=== PATIENT | female | born 1990 | race Caucasian/White ===

== ENCOUNTER 2016-09-06 20:20 | Emergency (ER) | payer OTHER ==
[~2016-09-06] VITALS: Ht 162.6 cm; Wt 68.0 kg
--- NOTE | 2016-09-06 20:58 | ED GI/GU/ABDOMINAL COMPLAINT ---
History of Present Illness General Chief Complaint: Female Urogenital Problems Stated Complaint: "I THINK IM HAVING A MISCARRIAGE" 7 1/2 WKS Source: patient, old records Exam Limitations: no limitations Vital Signs & Intake/Output Vital Signs & Intake/Output Vital Signs Date Time Temp Pulse Resp B/P Pulse O2 O2 Flow FiO2 Ox Delivery Rate 09/06 2320 99.0 83 16 97/57 99 Room Air 09/06 2300 98.8 80 16 110/57 99 Room Air 09/06 2036 97.8 97 16 129/84 96 Room Air Allergies Coded Allergies: No Known Allergies (09/06/16) Reconcile Medications Levothyroxine Sodium 88 MCG TABLET 1 TAB PO DAILY THYROID (Reported) Pnv95/Ferrous Fumarate/FA ( [place]) 28 MG IRON-800 MCG TABLET 1 TAB PO DAILY (Reported) Triage Note: PT 7.5 WEEKS TO TRIAGE WITH C/O LOWER ABD PAIN 6/10 x2HR AND LIGHT PINK SPOTTING x2OMIN. , 1 MISCARRIAGE. PER PTS LAUREN BAILEY PT NEEDS RHOGAM INJECTION. URINE SAMPLE SENT TO LAB. Triage Nurses Notes Reviewed? yes LMP (ages 10-50): 07/08 ? Y Is pt currently ? No Onset: Abrupt Duration: hour(s): (2), constant Timing: recent history Quality/Severity: aching, cramping Severity Numbers: 4 Location: vaginal Radiation: no radiation Activities at Onset: none Prior Abdominal Problems: none No Modifying Factors: none Associated Symptoms: DENIES HPI: This is a 26-year-old female with history of miscarriage presents 7-1/2 weeks with light pink spotting for the past 20 minutes that she noticed after wiping after urinating. The patient states that she's had "gas pains" today after eating a fiber one bar. She denies any complications throughout no history of similar episodes to this .. She was scheduled to have her first ultrasound of this tomorrow at her OB office. She denies any urinary symptoms fevers chills she has not taken anything for her symptoms. There is no abdominal pain back pain. No dizziness lightheadedness. The patient upon returning from ultrasound stated that there was no spotting or bleeding throughout the ultrasound and denies any episodes after going to the bathroom here. OB is dr baliey out of [place] (KELSEY FERNANDEZ) Past History Travel History Traveled to [place] past 21 day No Medical History Any Pertinent Medical History? see below for history Endocrine: hypothyroidism Surgical History Surgical History: none Psychosocial History What is your primary language Azeri Tobacco Use: Never used Family History Hx Contributory? No (KELSEY FERNANDEZ) Review of Systems Review of Systems Constitutional: Reports: see HPI. All Other Systems: Reviewed and Negative Comments Review of systems: See HPI, All other systems negative. Constitutional, no chills no fever, no malaise HEENT: No visual changes no sore throat no congestion, no ear pain Cardiovascular: No chest pain , no palpitation Skin, no change in skin Respiratory: No dyspnea no cough no sputum GI: No nausea no vomiting, no diarrhea, no bloating/constipation : No dysuria No hematuria, no frequency, no discharge Muscle skeletal: No joint pain, no joint swelling, no back pain, no neck pain, Neurologic: No numbness no headache Psych: No stress Heme/endocrine: No bruising no bleeding Immunology: No lymphadenopathy (KELSEY FERNANDEZ) Physical Exam Physical Exam General Appearance: well developed/nourished, no apparent distress, alert, awake Gastrointestinal: soft Comments: Well-developed well-nourished person in no acute distress HEENT: Normal EENT exam; PERRL, EOMI, HEAD is atraumatic. moist mucous membranes. Neck: Supple, normal range of motion Back: Nontender, no CVA tenderness. Full range of motion Cardiovascular: Regular rate and rhythms no murmurs rubs Respiratory: No respiratory distress. Patient speaking in full complete sentences. Breath sounds clear to auscultation bilaterally: NO W/R/R Abdomen: Soft, nontender nondistended, no appreciable organomegaly. Normal bowel sounds. No rebound/guarding, PELVIC: PT DECLINED Extremity: No edema, full range of motion of extremities Neuro: Alert oriented x3, motor sensory normal, There were no obvious focal neurologic abnormalities. Skin: No appreciable rash on exposed skin, skin is warm and dry. Psych: Mood and affect is normal, memory and judgment is normal. Core Measures ACS in differential dx? No Severe Sepsis Present: No Septic Shock Present: No (KELSEY FERNANDEZ) Progress Differential Diagnosis: ectopic , intrauterine , ovarian cyst, ovarian torsion, threatened AB, UTI/pyelo Plan of Care: Orders Procedure Date/time Status BLOOD PRODUCT PICKUP 09/06 2232 Active RHO D IMMUNE GLOBULIN - 300MCG 09/06 2212 Active URINE 09/06 2033 Complete URINALYSIS 09/06 2033 Complete HUMAN BETA HCG TITRE 09/06 2033 Complete COMPREHENSIVE METABOLIC PANEL 09/06 2033 Complete CBC WITHOUT DIFFERENTIAL 09/06 2033 Complete RHOGAM WORK-UP 09/06 2033 Complete Laboratory Tests 09/06/162121: Anion Gap 11, Estimated GFR > 60, BUN/Creatinine Ratio 21.7, Glucose 105 H, Calcium 9.5, Total Bilirubin 0.3, AST 16, ALT 32, Alkaline Phosphatase 51, Total Protein 7.3, Albumin 4.1, Globulin 3.2, Albumin/Globulin Ratio 1.3, Beta HCG, Quant 6969.2, CBC w Diff NO MAN DIFF REQ, RBC 4.15 L, MCV 86.0, MCH 28.8, RDW 14.2, MPV 8.1, Gran % 55.3, Lymphocytes % 33.9, Monocytes % 9.3, Eosinophils % 1.2, Basophils % 0.3, Absolute Granulocytes 4.2, Absolute Lymphocytes 2.6, Absolute Monocytes 0.7 H, Absolute Eosinophils 0.1, Absolute Basophils 0, PUBS MCHC 33.5 09/06/162034: Urine Color YEL, Urine Clarity CLEAR, Urine pH 6.5, Ur Specific [place] 1.010, Urine Protein NEG, Urine Ketones NEG, Urine Nitrite NEG, Urine Bilirubin NEG, Urine Urobilinogen 0.2, Ur Leukocyte Esterase NEG, Ur Microscopic SEDIMENT EXAMINED, Urine RBC FEW H, Urine WBC RARE, Ur Epithelial Cells FEW, Urine Hemoglobin TRACE-INTACT, Urine Glucose NEG, Urine Test POSITIVE Labs ordered ultrasound ordered old records reviewed case discussed with Dr. Galvan The patient spoke with her field advisor herself during my evaluation and is declining pelvic exam stating that she has an appointment with her OB tomorrow morning Case and ultrasound was reviewed with Dr. Galvan I spoke with the patient's field advisor Dr. BAILEY guarding the patient's lab work and ultrasound. The patient is scheduled to see her tomorrow morning which have any pelvic exam will be performed. I had a long discussion with the patient and her mother regarding her lab results and ultrasound findings this does not necessarily mean that she is actively miscarrying and it may be too early to identify pole. Discussed with her that the treatment will involve serial hCG Quant, ultrasound exams discussed with her need to return anytime sooner if she develops abdominal pain redevelops bleeding fever chills or any other concerns answered all their questions a feel comfortable to plan (KELSEY FERNANDEZ) Diagnostic Imaging: Viewed by Me: Ultrasound. Discussed w/RAD: Ultrasound. Radiology Impression: PATIENT: HASMUKH TAN PRESENT AGE: 26 PATIENT ACCOUNT NO: [id number] : 90 LOCATION: [facility] ORDERING PHYSICIAN: KELSEY VEGA SERVICE DATE: 09/06/16 EXAM TYPE: US - US TRANSVAG EXAMINATION: US TRANSVAGINAL CLINICAL INFORMATION: Threatened . Abdominal pain. Vaginal bleeding. COMPARISON: None TECHNIQUE: Transabdominal and transvaginal imaging was performed. Transvaginal imaging was performed for further evaluation of the endometrium and adnexa. FINDINGS: A gravid uterus is identified. There is a gestational sac identified with a yolk sac. The mean sac diameter is 10 mm corresponding to 5 weeks 5 days. This is discordant from the age by dates of 7 weeks 5 days. No pole is identified. Neither ovary is identified. There is no pelvic free fluid. IMPRESSION: Gestational sac identified with a yolk sac without a pole. The gestational age by ultrasound is 5 weeks 5 days. This is discordant from the age by dates of 7 weeks 5 days. Correlate with beta hCG and follow-up ultrasound. DICTATED BY: KWABENA VIEYRA MD DATE/TIME DICTATED:09/06/162213 HEARING SCREENER:MARIAMA DATE/TIME TRANSCRIBED:09/06/162213 CONFIDENTIAL, DO NOT COPY WITHOUT APPROPRIATE AUTHORIZATION. <Electronically signed in Other Vendor System> SIGNED BY: KWABENA VIEYRA MD 09/06/162218 Initial ED EKG: none (KELSEY FERNANDEZ) Departure Departure Time of Disposition: 2242 Disposition: HOME OR SELF CARE Condition: Stable Clinical Impression Primary Impression: Threatened miscarriage in early Referrals: FABRICE WINN (PCP/Family) Additional Instructions: Follow up with your field advisor tomorrow morning. Return anytime sooner if her symptoms worsen a copy of all your lab results and ultrasound findings are in your discharge paperwork Departure Forms: Customer Survey General Discharge Information (ZION VEGA,KELSEY) PA/TIRE VULCANIZER Co-Sign Statement Statement: ED Attending supervision documentation- [] I saw and evaluated the patient. I have also reviewed all the pertinent lab results and diagnostic results. I agree with the findings and the plan of care as documented in the PA's/TIRE VULCANIZER's documentation. [x] I have reviewed the ED Record and agree with the PA's/TIRE VULCANIZER's documentation. [] Additions or exceptions (if any) to the PAs/TIRE VULCANIZER's note and plan are summarized below: [] (JEANNIE ALMEIDA,RAFI Zavala)
[2016-09-06] MEDS ORDERED: LEVOTHYROXINE88 MCG PO (21:07)
[2016-09-06] MEDS ORDERED: PRENATAL CAPLE1 EACH PO (21:08)
[2016-09-06 21:33] LABS: ABSOLUTE BASOPHIL COUNT 0 /CUMM (0.0-0.2); ABSOLUTE EOSINOPHIL COUNT 0.1 /CUMM (0.0-0.7); ABSOLUTE GRANULOCYTE CT 4.2 /CUMM (1.4-6.5); ABSOLUTE LYMPH COUNT 2.6 /CUMM (1.2-3.4); ABSOLUTE MONOCYTE COUNT 0.7 /CUMM (0.10-0.60); BASOPHIL % 0.3 % (0.0-2.0); EOSINOPHIL % 1.2 % (0-5); GRANULOCYTE % 55.3 % (42.2-75.2); HEMATOCRIT 35.7 % (37-47); MEAN CORPUSCULAR HGB 28.8 PG (27.0-31.0); MEAN CORPUSCULAR HGB CONC 33.5 G/DL (33.0-37.0); MEAN PLATELET VOLUME 8.1 FL (7.4-10.4); PLATELET COUNT 270 /CUMM (130-400); RBC DISTRIBUTION WIDTH 14.2 % (11.5-14.5); RED BLOOD CELL CT 4.15 /CUMM (4.20-5.40); WHITE BLOOD CELL COUNT 7.6 /CUMM (4.8-10.8)
--- NOTE | 2016-09-06 22:19 | ULTRASOUND REPORT ---
EXAMINATION: US TRANSVAGINAL CLINICAL INFORMATION: Threatened . Abdominal pain. Vaginal bleeding. COMPARISON: None TECHNIQUE: Transabdominal and transvaginal imaging was performed. Transvaginal imaging was performed for further evaluation of the endometrium and adnexa. FINDINGS: A gravid uterus is identified. There is a gestational sac identified with a yolk sac. The mean sac diameter is 10 mm corresponding to 5 weeks 5 days. This is discordant from the age by dates of 7 weeks 5 days. No pole is identified. Neither ovary is identified. There is no pelvic free fluid. IMPRESSION: Gestational sac identified with a yolk sac without a pole. The gestational age by ultrasound is 5 weeks 5 days. This is discordant from the age by dates of 7 weeks 5 days. Correlate with beta hCG and follow-up ultrasound.
[2016-09-06 23:20] VITALS: BP 97/57
== END 2016-09-06 23:25 ==
LOC: ERH 20:20
PROVIDERS: Physician Assistant Medical
DX: O20.0 Threatened abortion (principal)
CPT/HCPCS: 76817; 81001; 81025; J2790